=== PATIENT | male | born 1960 | race Hispanic/Latino ===

== ENCOUNTER 2021-03-21 05:55 | Day surgery (SDC) | payer MEDICARE ==
[2021-03-18 13:10] LABS: BASOPHILS % (AUTO) 0.4 % (0.0-5.0); EOSINOPHILS % (AUTO) 0.9 % (0.0-8.0); HEMATOCRIT 35.5 % (42-54); LYMPHOCYTES % (AUTO) 19.4 % (21.0-51.0); MEAN CORPUSCULAR HGB CONC 32.7 g/dL (32.0-36.0); MEAN CORPUSCULAR VOLUME 85.5 fL (79-99); MONOCYTES % (AUTO) 8.9 % (3.0-13.0); NEUTROPHILS % (AUTO) 70.1 % (40.0-77.0); PLATELET COUNT (AUTO) 352 K/uL (130-400); RED BLOOD CELL COUNT(AUTO) 4.15 MIL/uL (4.50-6.20); WHITE BLOOD COUNT (AUTO) 7.5 K/uL (4.8-10.8)
[2021-03-18 13:18] LABS: CREATININE 0.8 mg/dL (0.5-1.5)
[2021-03-18 13:24] LABS: INR 1.15 (0.85-1.15); PROTHROMBIN TIME 12.4 SEC (9.6-11.6)
[2021-03-18 13:25] LABS: PARTIAL THROMBOPLASTIN TIME 28.8 SEC (26.3-35.5)
[2021-03-18 13:37] LABS: APPEARANCE,URINE Clear (CLEAR); BILIRUBIN,URINE Negative (NEGATIVE); COLOR,URINE Yellow (YELLOW); GLUCOSE, URINE (UA) Negative (NEGATIVE); KETONES,URINE Negative (NEGATIVE); LEUKOCYTE ESTERASE ,URINE Negative (NEGATIVE); NITRATE,URINE Negative (NEGATIVE); OCCULT BLOOD,URINE Negative (NEGATIVE); PROTEIN,URINE Negative (NEGATIVE); UROBILINOGEN,URINE 0.2 mg/dL (0.2-1.0)
[2021-03-18 13:59] VITALS: BP 103/49
[2021-03-21] VITALS (12 sets, daily range): BP systolic 100–122; BP diastolic 53–75
[~2021-03-21] VITALS: Ht 170.2 cm; Wt 83.6 kg
[~2021-03-21 05:55] MED LIST: APIX5TAB PO; ASPI-1197 PO; ATOR40TA69 PO; CARV6.25 PO; FURO20TA4 PO; GABA-529 PO; LISI2.5T2 PO; METF-444 PO; RIVA1.5C16 PO; SODIUM CHLORIDE 0.9% 500ML 500 ML IV SCH; SPIR25TA PO
[2021-03-21] MEDS ORDERED: SODIUM CHLORIDE 0.9% 1000ML 1,000 ML IV ONE (06:44)
[2021-03-21] MEDS ORDERED: NITROGLYCERIN 2 MG/VIAL VIAL IV ONE (08:43)
[2021-03-21] MEDS ORDERED: BIVALIRUDIN 250 MG/VIAL IV ONE (08:43)
[2021-03-21] MEDS ORDERED: IOHEXOL 350 MG/ML 100ML INFUS..BTL IV ONE (08:43)
[2021-03-21] MEDS ORDERED: LIDOCAINE HCL 1% 20 ML VIAL ONE (08:43)
[2021-03-21] MEDS ORDERED: IOHEXOL-350 50ML VIAL IV ONE (08:43)
[2021-03-21] MEDS ORDERED: FENTANYL CITRATE PF 50 MCG/1 ML 2ML VIAL ONE (09:44)
[2021-03-21] MEDS ORDERED: MIDAZOLAM HCL 1 MG/ML 2ML VIAL ONE (09:44)
[2021-03-21] MEDS ORDERED: DEXTROSE 50%-WATER 50 ML DISP.SYRIN IV PRN (10:30)
[2021-03-21] MEDS ORDERED: SODIUM CHLORIDE 0.9% 10 ML VIAL IVP SCH (10:30)
[2021-03-21] MEDS ORDERED: INSULIN HUMULIN R 100 UNIT/ML 3ML SQ SCH (11:30)
== END 2021-03-21 16:20 | disposition home or self-care (01) ==
LOC: DAH 05:55
PROVIDERS: ATTEND Internal Medicine Cardiovascular Disease
DX: I25.10 Atherosclerotic heart disease of native coronary artery without angina pectoris (principal); I25.5 Ischemic cardiomyopathy; I25.82 Chronic total occlusion of coronary artery; I34.0 Nonrheumatic mitral (valve) insufficiency; I50.42 Chronic combined systolic (congestive) and diastolic (congestive) heart failure; Q25.0 Patent ductus arteriosus; I25.2 Old myocardial infarction; E11.59 Type 2 diabetes mellitus with other circulatory complications; Z79.01 Long term (current) use of anticoagulants; Z79.84 Long term (current) use of oral hypoglycemic drugs; Z79.82 Long term (current) use of aspirin; Z79.899 Other long term (current) drug therapy; Z98.890 Other specified postprocedural states; Z86.73 Personal history of transient ischemic attack (TIA), and cerebral infarction without residual deficits; Z87.891 Personal history of nicotine dependence; Z83.3 Family history of diabetes mellitus; Z82.49 Family history of ischemic heart disease and other diseases of the circulatory system; Z95.810 Presence of automatic (implantable) cardiac defibrillator
CPT/HCPCS: 36415; 71045; 80048; 81003; 82948 ×2; 85025; 85610; 85730; 93005; 93458; A4215; A4216; A4221; A4222; A4223 ×3; A4606; A4663; C1894 ×2; J1644; J2250; J3490; J7030; Q9965; Q9967 ×2; 99156; 99157; J0583; J3010